=== PATIENT | female | born 1940 ===

== ENCOUNTER → 2018-08-01 | Outpatient (CLI) | payer OTHER | END | disposition home or self-care (01) | LOC: NUCLEAR 07:19 | DX: K59.04 Chronic idiopathic constipation (principal); K30 Functional dyspepsia; K57.30 Diverticulosis of large intestine without perforation or abscess without bleeding; R11.0 Nausea | CPT/HCPCS: 78264; A9541 ==

== ENCOUNTER → 2018-08-21 | Outpatient (CLI) | payer OTHER | END | disposition home or self-care (01) | LOC: NUCLEAR 10:00 | DX: M81.0 Age-related osteoporosis without current pathological fracture (principal) ==

== ENCOUNTER 2018-10-17 05:02 | Emergency (ER) | payer OTHER ==
[~2018-10-17] VITALS: Ht 160 cm; Wt 59.0 kg
[2018-10-17] MEDS ORDERED: LINZESS145 MCG (05:11)
[2018-10-17] MEDS ORDERED: ENALAPRIL MALE2.5 MG (05:12)
== END 2018-10-17 15:40 | disposition home or self-care (01) ==
LOC: ER 05:02
DX: E87.1 Hypo-osmolality and hyponatremia (principal); R11.2 Nausea with vomiting, unspecified

== ENCOUNTER 2018-11-07 17:46 | Emergency (ER) | payer OTHER ==
[~2018-11-07] VITALS: Ht 157.5 cm; Wt 59.0 kg
[~2018-11-07 17:46] MED LIST: ENALAPRIL MALE2.5 MG; LINZESS145 MCG
== END 2018-11-08 08:57 | disposition home or self-care (01) ==
LOC: ER 17:46
DX: E87.1 Hypo-osmolality and hyponatremia (principal); E86.0 Dehydration; R11.0 Nausea

== ENCOUNTER 2018-11-16 09:48 | Outpatient (CLI) | payer OTHER | END 2018-11-16 09:50 | disposition home or self-care (01) | LOC: MRI 09:48 | DX: G44.221 Chronic tension-type headache, intractable (principal) | CPT/HCPCS: 70553; A9575 ==

== ENCOUNTER 2020-07-13 08:06 | Outpatient (CLI) | payer OTHER | END 2020-07-13 08:32 | disposition HB | LOC: RAD 08:06 | DX: M77.41 Metatarsalgia, right foot (principal); M77.42 Metatarsalgia, left foot ==